=== PATIENT | male | born 1985 | race Caucasian/White ===

== ENCOUNTER 2022-06-30 13:52 | Outpatient (CLI) | payer OTHER, SELFPAY ==
[2022-06-30 19:21] LABS: Alanine Aminotransferase 209 U/L (6-50); Albumin Level 4.9 g/dL (3.5-5.1); Alkaline Phosphatase 62 U/L (38-126); Anion Gap 11 mmol/L (8-16); Aspartate Amino Transferase 75 U/L (17-59); Bilirubin,Total 0.7 mg/dL (0.2-1.3); Blood Urea Nitrogen 15 mg/dL (9-20); Calcium 9.1 mg/dL (8.4-10.2); Carbon Dioxide 28 mmol/L (22-30); Chloride 102 mmol/L (98-107); Cholesterol 228 mg/dL (0-200); Estimated Glomerular Filt Rate > 60; Glucose 85 mg/dL (65-110); HDL Direct 29 mg/dL; Potassium 4.3 mmol/L (3.4-5.0); Sodium 141 mmol/L (137-145); Triglycerides 134 mg/dL (<150); Uric Acid 9.7 mg/dL (3.5-8.5)
[2022-06-30 19:31] LABS: LDL Cholesterol Direct 154 mg/dL
[2022-06-30 19:35] LABS: Hemoglobin A1C 5.2 % (<5.7)
== END 2022-06-30 13:53 | disposition home or self-care (01) ==
LOC: ANHGOSHLAB 13:53
PROVIDERS: PCP Family Medicine; Visit Provider Family Medicine
DX: Z13.228 Encounter for screening for other metabolic disorders (principal); E66.9 Obesity, unspecified; Z13.220 Encounter for screening for lipoid disorders; M79.675 Pain in left toe(s)
CPT/HCPCS: 36415; 80053; 80061; 83036; 84550

== ENCOUNTER → 2022-07-06 08:46 | Outpatient (CLI) | payer OTHER, SELFPAY ==
--- NOTE | ~2022-07-06 | US_ITS ---
US abdomen limited INDICATION: Elevated liver enzymes PROCEDURE: Realtime right upper abdominal ultrasound. COMPARISON: No prior studies for comparison. FINDINGS: The pancreas is normal without focal mass or pancreatic ductal dilation. Liver echotexture is increased, consistent with fatty infiltration. There is normal directional flow in the portal ve in. The gallbladder is normal without stones, gallbladder wall thickening or pericholecystic fluid. Comm on bile duct measures 3 mm. No sonographic Lozano's sign. IMPRESSION: 1: Hepatic steatosis. Reviewed, dictated and finalized at location B. IMPRESSION: 1: Hepatic steatosis.
== END ==
PROVIDERS: PCP Family Medicine; Visit Provider Family Medicine
DX: R74.8 Abnormal levels of other serum enzymes (principal); K76.0 Fatty (change of) liver, not elsewhere classified
CPT/HCPCS: 76705

== ENCOUNTER 2022-08-03 07:35 | Outpatient (CLI) | payer OTHER, SELFPAY ==
--- NOTE | 2022-09-10 09:57 | WPDSLEEPSTUD ---
Sleep Study Date of Study: 08/03/22 Ordering Provider: Ivan Hall DO Interpreting Physician: Supriya Contreras MD Sleep Study Type: Split Polysomnogram Height: 1.78 m Weight: 92.986 kg Body Mass Index: 29.4 Neck Circumference (inches): 17 [place]: 16 Reason for Sleep Study Excessive daytime sleepiness, poor quality sleep Sleep History Wan Kearns is a 37-year-old man with heavy snoring. He wakes up throughout the night. He has difficulty falling asleep. He is tired most days. He wakes up not feeling refreshed. He is a restless sleeper. This has been going on for years. He frequently awakens from sleep feeling short of breath and awakens at night with heartburn, belching or coughing. He frequently has trouble sleeping with a cold. He frequently wakes up gasping for breath at night and has breathing problems at night observed by others. He rarely sweats excessively at night or notices his heart pounding or beating irregularly at night. He frequently falls asleep during the day. He occasionally falls asleep involuntarily. He rarely falls asleep while driving. He does not have loss of muscle tone with strong emotion. He occasionally has daytime difficulties due to excessive sleepiness. He does not feel paralyzed on waking or falling asleep. He does not have vivid dreamlike scenes on waking or falling asleep. He occasionally is afraid to go to sleep. He occasionally has nightmares. He occasionally remembers his dreams. He constantly has racing thoughts. He occasionally feels sad or depressed. He frequently has anxiety. He frequently has muscular tension and notices parts of his body jerking. He frequently kicks at night. He occasionally has crawling and aching feelings in his legs. He occasionally has leg pain at night. He occasionally has morning jaw pain. He frequently grinds his teeth during sleep. He occasionally is bothered by pain during the day. He never is awakened by pain at night. He frequently wakes up feeling stiff in the morning. He occasionally wakes up with sore or achy muscles. He occasionally wakes up with pain in the neck and spine. He has nightmares, fatigue and bowel disturbances. He has a diagnosis of GERD. Normal bedtime is between 1 and 2:00 a.m. taking an hour to fall asleep, typically waking 1-2 times during the night. While awake he may have a drink of water, check his phone. It may take 45 minutes for him to return to sleep. He wakes by 9 in the morning. On weekends, his bedtime may be slightly later, between 2:00 a.m. and 3:00 a.m. also rising at 9 in the morning. He estimates getting between 5 and 6 hours of sleep at night. He works a rotating schedule. He may take naps in the afternoon or evening. A short nap is not refreshing. He is usually drowsy for 3 hours after waking. Habits: Quit tobacco 6 years ago. He uses electronic cigarettes. 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
[2022-09-10 10:17] VITALS: BMI 29.4
== END 2022-08-04 06:17 | disposition home or self-care (01) ==
LOC: ANHCSM 07:37
PROVIDERS: PCP Family Medicine; Visit Provider Family Medicine
DX: R53.82 Chronic fatigue, unspecified (principal); G47.10 Hypersomnia, unspecified; G47.33 Obstructive sleep apnea (adult) (pediatric)
CPT/HCPCS: 95811

== ENCOUNTER 2022-10-05 13:17 | Outpatient (CLI) | payer OTHER, SELFPAY ==
[2022-10-05 19:22] LABS: Alanine Aminotransferase 107 U/L (6-50); Albumin Level 4.9 g/dL (3.5-5.1); Alkaline Phosphatase 64 U/L (38-126); Aspartate Amino Transferase 46 U/L (17-59); Bilirubin,Total 0.5 mg/dL (0.2-1.3); Uric Acid 7.5 mg/dL (3.5-8.5)
== END 2022-10-05 13:18 | disposition home or self-care (01) ==
LOC: ANHGOSHLAB 13:19
PROVIDERS: PCP Family Medicine; Visit Provider Family Medicine
DX: R74.01 Elevation of levels of liver transaminase levels (principal); M10.9 Gout, unspecified
CPT/HCPCS: 36415; 80076; 84550

== ENCOUNTER 2024-07-01 18:14 | Emergency (ER) | payer OTHER, SELFPAY ==
--- NOTE | ~2024-07-01 | XR_ITS ---
EXAMINATION: XR chest 2V DATE: 07/01/2024 18:45 INDICATION: Chest pain. TECHNIQUE: Frontal and lateral views of the chest were obtained. COMPARISON: None. FINDINGS: There are is no pneumonia, pleural effusion, or pneumothorax. The heart size is normal. IMPRESSION: 1. No acute cardiopulmonary disease. Reviewed, dictated and finalized at location E.
--- NOTE | 2024-07-01 18:21 | ECG_ITS ---
Test Date: 2024-07-01 18:27:57 Measurements Intervals [place] Rate: 105 P: 56 IA: 170 QRS: 12 QRSD: 85 T: 10 QT: 317 QTc: 419 Interpretive Statements SINUS TACHYCARDIA ABNORMAL RHYTHM ECG No previous ECG available for comparison Electronically Signed On 07-02-2024 13:40:15 CDT by Je Lazo M.D.
[2024-07-01 18:26] VITALS: BP 152/91; PULSE 101; RESP 20; TEMP 36.7; O2SAT 100
[2024-07-01 18:44] LABS: Basophils Absolute Auto 0.1 K/mm3 (0.0-0.1); Basophils Percent Auto 0.4 % (0.2-1.2); Eosinophils Absolute Auto 0.2 K/mm3 (0-0.3); Eosinophils Percent Auto 1.3 % (0-4.4); Hematocrit 47.3 % (42.0-52.0); Hemoglobin 16.9 g/dL (14.0-18.0); Immature Granulocyte Absolute 0.05 K/mm3 (0.00-0.031); Immature Granulocyte Percent A 0.4 % (0-0.5); Lymphocytes Absolute Auto 2.14 K/mm3 (0.9-3.2); Lymphocytes Percent Auto 17.9 % (18.3-44.2); Mean Corpuscular HGB Conc 35.7 g/dl (32-36); Mean Corpuscular Hemoglobin 30.6 pg (26-34); Mean Corpuscular Volume 85.7 fl (80-100); Mean Platelet Volume 10.2 fl (7.4-10.4); Monocytes Absolute Auto 0.6 K/mm3 (0.1-0.6); Platelet Count Result 221 k/mm3 (150-375); Red Blood Count 5.52 M/mm3 (4.6-6.20); Red Cell Distribution Width 12.7 % (11.5-14.5)
[2024-07-01 18:54] LABS: Alanine Aminotransferase 181 U/L (6-50); Alkaline Phosphatase 76 U/L (38-126); Anion Gap 14 mmol/L (4-12); Aspartate Amino Transferase 59 U/L (17-59); Blood Urea Nitrogen 16 mg/dL (9-20); Calcium 9.4 mg/dL (8.4-10.2); Carbon Dioxide 24 mmol/L (22-30); Chloride 100 mmol/L (98-107); Estimated CRCL calculation 94 ml/min; Estimated Glomerular Filt Rate > 60; Glucose 126 mg/dL (65-110); Lipase 122 U/L (23-300); Potassium 3.7 mmol/L (3.4-5.0); Sodium 138 mmol/L (137-145)
[2024-07-01 19:00] LABS: Partial Thromboplastin Time 28.5 Seconds (22.3-36.8)
[2024-07-01 19:05] LABS: Troponin I < 0.012 ng/mL (0.000-0.034)
[2024-07-01 21:28] VITALS: BP 148/89; PULSE 82; RESP 17; TEMP 36.6; O2SAT 100
[2024-07-01 21:52] LABS: Troponin I < 0.012 ng/mL (0.000-0.034)
--- NOTE | 2024-07-01 22:02 | ED.CHESTPAIN ---
HPI - Chest Pain General Chief Complaint: Chest Pain Stated Complaint: chest pain Time Seen by Provider: 07/01/24 21:54 History of Present Illness HPI narrative: 39-year-old male with a reported history of GERD, fatty liver disease and gout presents to emergency department for chest pain since yesterday. Patient points to his epigastrium describing. States it is sharp in nature and worse when he takes deep breath. States that started yesterday after having a eggs and fried potatoes for breakfast. States he had fried steak for dinner which did not make the pain better or worse. He otherwise denies known aggravating or alleviating factors. Denies nausea, vomiting, cough or congestion, fever, prior abdominal surgeries. Denies hemoptysis or recent surgeries or hospitalizations, lower extremity edema, family history of cardiac disease. States he has a remote history of smoking Related Data Home Medications Medication Instructions Recorded Confirmed colchicine 0.6 mg tablet 0.6 mg PO .PRN 06/30/22 Allergies Allergy/AdvReac Type Severity Reaction Status Date / Time No Known Allergies Allergy Verified 09/29/22 14:19 Review of Systems Review of Systems: All systems reviewed & are unremarkable except as noted in HPI and below PMFSH Past Medical History Medical History GERD (gastroesophageal reflux disease) Family History Family History Mother Hypertension Father Hepatitis C Liver cancer Gout Grandparent Malignant neoplasm of prostate Social History Social History Smoking status: Current some day smoker (Vapes) Tobacco type: e-cigarettes/vaping Alcohol intake: current Alcohol use details: Drinks beer 3-4 beers weekly Substance use: never Substance use type: does not use Lack of Transportation: No Lack of Food: Never True Current Housing: I Have Housing Concerned About Future Housing: No Difficulty Paying Gas/Electric Bills: No Difficulty Paying for Meds: No Currently Unemployed: No Education: Bachelor's Degree Difficulty w/ Childcare or Family Care: No Living arrangements: with family Occupation/Education: occupation 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 HEAD: Normocephalic, atraumatic. ENT: Nares clear, no rhinorrhea or epistaxis. Mucous membranes moist. NECK: Supple. CHEST: Clear to auscultation. No respiratory distress.No tenderness to chest wall HEART: Regular rate and rhythm. No murmur heard. Normal peripheral pulses. ABDOMEN: Soft, nontender, nondistended, normal active bowel sounds. no rebound, guarding or rigidity. Negative Lozano's sign. No CVA tenderness. EXTREMITIES: Normal range of motion. No edema. SKIN: Warm, dry, no rash. NEURO: No focal deficits. Alert and oriented x3 Course Vital Signs Vital signs: Vital Signs Temperature 98.1 F 07/01/24 18:26 Pulse Rate 101 H 07/01/24 18:26 Respiratory Rate 20 07/01/24 18:26 Blood Pressure 152/91 H 07/01/24 18:26 Pulse Oximetry 100 07/01/24 18:26 Oxygen Delivery Room Air 07/01/24 18:26 Temperature 97.8 F 07/01/24 21:28 Pulse Rate 82 07/01/24 21:28 Respiratory Rate 17 07/01/24 21:28 Blood Pressure 148/89 H 07/01/24 21:28 Pulse Oximetry 100 07/01/24 21:28 Oxygen Delivery Room Air 07/01/24 18:26 MDM - Chest Pain MDM Narrative Medical decision making narrative: 39-year-old male presents to emergency department for epigastric pain/ chest pain that started yesterday. Triage vital significant for heart r
[2024-07-01 22:12] LABS: D Dimer 0.41 ug/mL (<0.48)
[2024-07-01] MEDS: FAMOTIDINE 20 MG TABLET PO (22:46)
[2024-07-01] MEDS: BELLADONNA ALK/PHENOB ELIX 10 ML, MAG HYDROX/ALUMINUM HYD/SIMETH 30 ML, LIDOCAINE HCL 2... PO (22:46)
[2024-07-01 22:52] VITALS: BP 138/78; PULSE 78; RESP 18; TEMP 36.7; O2SAT 99
== END 2024-07-01 22:55 | disposition home or self-care (01) ==
LOC: ANHED 22:34
PROVIDERS: Student in an Organized Health Care Education/Training Program; Emergency Provider Physician Assistant
DX: R10.13 Epigastric pain (principal); R07.89 Other chest pain; K21.9 Gastro-esophageal reflux disease without esophagitis; M10.9 Gout, unspecified; K76.0 Fatty (change of) liver, not elsewhere classified; F17.290 Nicotine dependence, other tobacco product, uncomplicated; Z79.899 Other long term (current) drug therapy; R00.0 Tachycardia, unspecified
CPT/HCPCS: 36415; 71046; 80053; 83690; 84484; 85025; 85380; 85610; 85730; 93005; 99284; A9270